=== PATIENT | female | born 1960 | race Caucasian/White ===

== ENCOUNTER 2022-01-29 17:09 | Emergency (ER) | payer SELFPAY ==
[~2022-01-29] VITALS: Ht 157.5 cm; Wt 65.9 kg
[~2022-01-29 17:09] MED LIST: ADV50250 IH; ASPI-1264 PO; CLOP75TA34 PO; DEXL60CA3 PO; DIAZ5TAB22 PO; HYDR12TA PO; IPRA3AMP31 IH; MAGN200T8 PO; MONT10TA21 PO; OXYC-658 PO; TIOT18CA7 IH; VARE0.5T PO
[2022-01-29 17:16] VITALS: BP 122/84
[2022-01-29] MEDS ORDERED: CefTRIAXone 1000mg IM Kit (w/lidocaine diluent) IM ONE (18:30)
[2022-01-29] MEDS ORDERED: azithromycin 250mg tablet PO ONE (18:30)
--- NOTE | 2022-01-29 18:51 | NUR ---
IM GIVEN PO MED GIVEN
== END 2022-01-29 18:56 | disposition home or self-care (01) ==
LOC: ER 17:14
DX: Z11.3 Encounter for screening for infections with a predominantly sexual mode of transmission (principal); I11.9 Hypertensive heart disease without heart failure; J44.9 Chronic obstructive pulmonary disease, unspecified; G89.29 Other chronic pain; M54.9 Dorsalgia, unspecified; F31.9 Bipolar disorder, unspecified; Z90.49 Acquired absence of other specified parts of digestive tract; Z79.899 Other long term (current) drug therapy
CPT/HCPCS: 96372; 99283; J0696

== ENCOUNTER 2022-02-10 22:59 | Emergency (ER) | payer SELFPAY ==
[~2022-02-10] VITALS: Ht 157.5 cm; Wt 64.2 kg
[2022-02-11] MEDS ORDERED: ONDA4TAB12 PO (02:14)
[2022-02-11] MEDS ORDERED: IBUP-1984 PO (02:14)
[2022-02-11] MEDS ORDERED: ACET-1025 PO (02:14)
[2022-02-11] MEDS ORDERED: LOPE2CAP PO (02:14)
[2022-02-11] MEDS ORDERED: ibuprofen tablet 400 MG TABLET PO ONE (02:15)
[2022-02-11] MEDS ORDERED: ondansetron 4mg rapidly disintigrating tab PO ONE (02:15)
[2022-02-11] MEDS ORDERED: acetaminophen 325mg tablet PO ONE (02:15)
[2022-02-11 03:27] VITALS: BP 109/74
== END 2022-02-11 03:30 | disposition home or self-care (01) ==
LOC: ER 23:00
DX: U07.1 COVID-19 (principal); I25.10 Atherosclerotic heart disease of native coronary artery without angina pectoris; I10 Essential (primary) hypertension; I25.2 Old myocardial infarction; J44.9 Chronic obstructive pulmonary disease, unspecified; G89.29 Other chronic pain; F41.9 Anxiety disorder, unspecified; F31.9 Bipolar disorder, unspecified; Z90.49 Acquired absence of other specified parts of digestive tract; Z90.710 Acquired absence of both cervix and uterus; Z72.89 Other problems related to lifestyle; Z98.890 Other specified postprocedural states; Z79.899 Other long term (current) drug therapy
CPT/HCPCS: 87635; 99284; C9803

== ENCOUNTER 2022-02-22 03:40 | Emergency (ER) | payer OTHER ==
[~2022-02-22] VITALS: Ht 157.5 cm; Wt 145.0 kg
[~2022-02-22 03:40] MED LIST changes: +IBUP-1984 PO; +LOPE2CAP PO; +ONDA4TAB12 PO
[2022-02-22 03:46] VITALS: BP 113/74
== END 2022-02-22 05:30 | disposition home or self-care (01) ==
LOC: ER 03:41
DX: U07.1 COVID-19 (principal); R50.9 Fever, unspecified; I25.10 Atherosclerotic heart disease of native coronary artery without angina pectoris; I25.2 Old myocardial infarction; J44.9 Chronic obstructive pulmonary disease, unspecified; G89.29 Other chronic pain; I10 Essential (primary) hypertension; Z87.01 Personal history of pneumonia (recurrent); Z86.19 Personal history of other infectious and parasitic diseases; Z90.49 Acquired absence of other specified parts of digestive tract; Z72.89 Other problems related to lifestyle; Z79.82 Long term (current) use of aspirin; Z79.899 Other long term (current) drug therapy
CPT/HCPCS: 99281